=== PATIENT | male | born 1995 | race African-American/Black ===

== ENCOUNTER 2023-10-19 22:16 | Emergency (ER) | payer MEDICAID, OTHER ==
[~2023-10-19] VITALS: Ht 180.3 cm; Wt 82.0 kg
[2023-10-19 22:23] VITALS: TEMP 97.7; O2SAT 96
[2023-10-19 22:36] VITALS: O2SAT 96
[2023-10-19 23:05] LABS: BASOPHILS % 0.3 % (0.0-2.0); DIFFERENTIAL COMMENT 0; HEMOGLOBIN. 11.7 g/dL (14.0-18.0); LYMPHOCYTES % 25.3 % (20.0-50.0); MEAN CORPUSCULAR HEMOGLOBIN 24.8 pg (28.0-32.0); MEAN CORPUSCULAR HGB CONC 31.5 g/dL (31.0-37.0); MEAN CORPUSCULAR VOLUME 78.8 fL (80.0-94.0); MEAN PLATELET VOLUME 8.2 fl (7.4-10.4); MONOCYTES % 8.7 % (2.0-8.0); NEUTROPHILS % 64.7 % (40.0-76.0); PLATELET 293 x1000/uL (130-400); RED CELL DISTRIBUTION WIDTH 14.5 % (11.6-14.6); WHITE BLOOD COUNT 4.3 x1000/uL (4.5-11.0)
[2023-10-19 23:11] LABS: CARBON DIOXIDE 22 mEq/L (21-32); CHLORIDE 102 mEq/L (98-107); SODIUM 131 mEq/L (136-145)
[2023-10-19 23:12] LABS: CALCIUM 9.7 mg/dL (8.7-10.4)
[2023-10-19 23:16] LABS: GLUCOSE 96 mg/dL (70-105)
[2023-10-19 23:17] LABS: UREA NITROGEN BLOOD 6 mg/dL (9-23)
[2023-10-19 23:18] LABS: ALANINE AMINOTRANSFERASE 16 IU/L (10-49); ALBUMIN 4.9 g/dL (3.2-4.8); ASPARTATE AMINOTRANSFERASE 37 IU/L (<34)
[2023-10-19] MEDS: SODIUM CHLORIDE 0.9% 1,000 ML IV ONE (23:18)
[2023-10-19 23:19] LABS: BILIRUBIN TOTAL 0.2 mg/dL (0.1-1.0); LACTIC ACID 2.6 mmol/L (0.4-2.0)
[2023-10-19 23:22] LABS: BILIRUBIN DIRECT < 0.1 mg/dL (<=3.0); ETHANOL BLOOD < 10 mg/dL (<10)
[2023-10-19 23:23] VITALS: BP 140/98; PULSE 80; RESP 16
[2023-10-19] MEDS: MORPHINE SULFATE 4 MG/ML INJ (FOR IV/IM USE) IV STA (23:23)
[2023-10-19] MEDS: FAMOTIDINE 20MG/2ML VIAL IV STA (23:23)
[2023-10-19] MEDS: METOCLOPRAMIDE HCL 10MG/2ML VIAL IV ONE (23:23)
[2023-10-19] MEDS ORDERED: HALOPERIDOL LACTATE 5MG/ML VIAL IM NR (23:25)
== END 2023-10-19 23:20 | disposition left against medical advice (07) ==
LOC: ER 22:16
DX: R10.9 Unspecified abdominal pain (principal); R11.2 Nausea with vomiting, unspecified; F41.9 Anxiety disorder, unspecified; F31.9 Bipolar disorder, unspecified; F12.90 Cannabis use, unspecified, uncomplicated; Z88.8 Allergy status to other drugs, medicaments and biological substances
CPT/HCPCS: 80076; 80048; 80320; 83605; 83690; 85025; 36415; 71045; 96361; 96374; 96375; 99284; J3490; J2765; J2270; J7030; Z7610; J1630; G0480